=== PATIENT | male | born 1985 | race American Indian/Alaskan Native ===

== ENCOUNTER 2021-07-05 11:31 | Emergency (ER) | payer SELFPAY ==
[2021-07-05 11:40] VITALS: BP 129/75
[2021-07-05] MEDS ORDERED: SODIUM CHLORIDE 0.9% 1000 ML 1,000 ML IV ONE ×2 (12:30→15:24)
--- NOTE | 2021-07-05 12:30 | Emergency Department Report ---
ED General Adult HPI - General Chief complaint: Arrhythmia/Palpitations Stated complaint: STOMACH PAIN/CHEST MURMUR/FINGER NUMBNESS PUI?: No Time Seen by Provider: 07/05/21 12:25 Source: patient Mode of arrival: Ambulatory Limitations: No Limitations - History of Present Illness Initial comments: Mr. Alfred is a 36-year-old male comes to the emergency room complaining of palpitations last night along with abdominal pain. He appears to be in good health. He appears fit for his age. He denies any medical problems. He denies chest pain or shortness of breath. He denies fever or chills. 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 Is ambulatory nontoxic and [id number] on arrival to fast track -: Sudden, hour(s) Severity scale (0 -10): 0 Consistency: intermittent Improves with: none Worsens with: none Associated Symptoms: denies other symptoms. denies: confusion, chest pain, cough, diaphoresis, fever/chills, headaches, loss of appetite, malaise, nausea/vomiting, rash, seizure, shortness of breath, syncope, weakness Treatments Prior to Arrival: none - Related Data Previous Rx's Medication Instructions Recorded Last Taken Type Omeprazole [PriLOSEC] 20 mg PO QDAY #30 capsule. 07/18/15 Unknown Rx Allergies Allergy/AdvReac Type Severity Reaction Status Date / Time No Known Allergies Allergy Unverified 07/18/15 15:07 ED Review of Systems ROS: Stated complaint: STOMACH PAIN/CHEST MURMUR/FINGER NUMBNESS Other details as noted in HPI Comment: All other systems reviewed and negative ED Past Medical Hx - Past Medical History Previous Medical History?: Yes Hx GERD: Yes Additional medical history: childhood asthma, history of elevated CK, history of heart murmur - Surgical History Past Surgical History?: No - Family History Family history: no significant - Social History Smoking Status: Current Every Day Smoker Substance Use Type: Alcohol - Medications Home Medications: Home Medications Medication Instructions Recorded Confirmed Last Taken Type Omeprazole [PriLOSEC] 20 mg PO QDAY #30 capsule. 07/18/15 Unknown Rx ED Physical Exam - General Limitations: No Limitations General appearance: alert, in no apparent distress - Head Head exam: Present: atraumatic, normocephalic - Eye Eye exam: Present: normal appearance - ENT ENT exam: Present: mucous membranes moist - Neck Neck exam: Present: normal inspection - Respiratory Respiratory exam: Present: normal lung sounds bilaterally. Absent: respiratory distress - Cardiovascular Cardiovascular Exam: Present: regular rate, normal rhythm. Absent: systolic murmur, diastolic murmur, rubs, gallop - GI/Abdominal GI/Abdominal exam: Present: soft, normal bowel sounds - Rectal Rectal exam: Present: deferred - Extremities Exam Extremities exam: Present: normal inspection - Back Exam Back exam: Present: normal inspection - Neurological Exam Neurological exam: Present: alert, oriented X3 - Psychiatric Psychiatric exam: Present: normal affect, normal mood - Skin Skin exam: Present: warm, dry, intact, normal color. Absent: rash ED Course Vital Signs 07/05/21 11:37 Temperature 98.7 F Pulse Rate 80 Respiratory 18 Rate Blood Pressure 129/75 [Right] O2 Sat by Pulse 97 Oximetry ED Medical Decision Making - Lab Data Result diagrams: 07/05/21 12:41 07/05/21 12:41 - EKG Data -: EKG Interpreted by Ak EKG shows normal: sinus rhythm Rate: normal - EKG Data When compared to previous EKG there are: no significant change Interpretation: no acute changes - Medical Decision Making Vital Signs 07/05/21 11:37 Temperature 98.7 F Pulse Rate 80 Respiratory 18 Rate Blood Pressure 129/75 [Right] O2 Sat by Pulse 97 Oximetry Labs 07/05/21 07/05/21 07/05/21 12:41 12:41 12:41 WBC 5.9 RBC 5.17 H Hgb 15.0 Hct 44.9 MCV 87 MCH 29 MCHC 34 RDW 14.6 Plt Count 200 Lymph % (Auto) 27.4 Jackson % (Auto) 7.6 H Eos % (Auto) 4.6 H Baso % (Auto) 0.6 Lymph # (Auto) 1.6 Jackson # (Auto) 0.4 Eos # (Auto) 0.3 Baso # (Auto) 0.0 Seg Neutrophils % 59.8 Seg Neutrophils # 3.5 VBG pH Sodium 138 Potassium 4.2 Chloride 99.6 Carbon Dioxide 22 Anion Gap 21 BUN 6 L Creatinine 0.9 Estimated GFR > 60 BUN/Creatinine Ratio 7 Glucose 83 Ketones Quantitative Negative Calcium 9.1 Magnesium 1.90 Total Bilirubin 1.20 AST 35 ALT 24 Alkaline Phosphatase 52 Total Creatine Kinase 678 H CK-MB (CK-2) 10.3 H CK-MB (CK-2) Rel Index 1.5 Troponin T < 0.010 Total Protein 7.0 Albumin 4.4 Albumin/Globulin Ratio 1.7 Lipase 18 TSH 0.675 Urine Color Urine Turbidity Urine pH Ur Specific [place] Urine Protein Urine Glucose (UA) Urine Ketones Urine Blood Urine Nitrite Urine Bilirubin Urine Urobilinogen Ur Leukocyte Esterase Urine WBC (Auto) Urine RBC (Auto) 07/05/21 07/05/21 12:41 Unknown WBC RBC Hgb Hct MCV MCH MCHC RDW Plt Count Lymph % (Auto) Jackson % (Auto) Eos % (Auto) Baso % (Auto) Lymph # (Auto) Jackson # (Auto) Eos # (Auto) Baso # (Auto) Seg Neutrophils % Seg Neutrophils # VBG pH 7.362 Sodium Potassium Chloride Carbon Dioxide Anion Gap BUN Creatinine Estimated GFR BUN/Creatinine Ratio Glucose Ketones Quantitative Calcium Magnesium Total Bilirubin AST ALT Alkaline Phosphatase Total Creatine Kinase CK-MB (CK-2) CK-MB (CK-2) Rel Index Troponin T Total Protein Albumin Albumin/Globulin Ratio Lipase TSH Urine Color Straw Urine Turbidity Clear Urine pH 6.0 Ur Specific [place] 1.003 Urine Protein <15 mg/dl Urine Glucose (UA) Neg Urine Ketones Tr Urine Blood Neg Urine Nitrite Neg Urine Bilirubin Neg Urine Urobilinogen < 2.0 Ur Leukocyte Esterase Neg Urine WBC (Auto) < 1.0 Urine RBC (Auto) < 1.0 Labs noted UA noted CK noted, this is a chronic elevation. Patient works outside and does not hydrate well. He has minimal protein in his urine. Creatinine is normal. Patient's blood sugar 85 on serum. He was rechecked and on Accu-Chek it was 85 as well. He is taking p.o. without difficulty. Currently drinking juice. I have discussed with patient his elevated CK and the implications it has for r enal dysfunction. I have encouraged him to stay well-hydrated. Have given him 2 L of normal saline in the ER. The nurses had to restate his pain because the first INT was burning. Patient being discharged home with discharge plan of care including diet, activity, medications and follow-up. He verbalizes understanding of discharge plan of care - Differential Diagnosis GERD versus ACS versus URI Critical care attestation.: If time is entered above; I have spent that time in minutes in the direct care of this critically ill patient, excluding procedure time. ED Disposition Clinical Impression: Elevated CK, Hx of gastroesophageal reflux (GERD) Disposition: 01 HOME / SELF CARE / HOMELESS Is pt being admited?: No Does the pt Need Aspirin: No Condition: Stable Instructions: Creatine Kinase Test Additional Instructions: As we discussed drink a lot of water when you are working outside. You do not want your kidneys to become involved. You have been in the ER on a couple occasions with elevated CKs. This occurring over time can cause kidney dysfunction. Tylenol for pain Continue your home GERD medicine. At one time you were given a prescription for Protonix. If you do not have this you can use [id number] Pepcid. Follow-up with PCP in 48 hours for recheck. I have given you referral below Referrals: PRIMARY CARE, [Primary Care Provider] - 3-5 Days AMAURY GARCIA MD [Staff Physician] - 3-5 Days Time of Disposition: 15:29
[2021-07-05 13:38] LABS: Bilirubin,Urine NEG (Negative); Blood,Urine NEG (Negative); Color,Urine Straw (Yellow); Protein,Urine <15 mg/dL mg/dL (Negative); RBC,Urine < 1.0 /HPF (0.0-6.0); Urobilinogen,Urine < 2.0 mg/dL (<2.0); WBC,Urine < 1.0 /HPF (0.0-6.0)
[2021-07-05 13:58] LABS: Basophils % (Auto) 0.6 % (0.0-1.8); Eosinophils # (Auto) 0.3 K/mm3 (0.0-0.4); Eosinophils % (Auto) 4.6 % (0.0-4.3); Hematocrit 44.9 % (35.5-45.6); Lymphocytes # (Auto) 1.6 K/mm3 (1.2-5.4); Lymphocytes % (Auto) 27.4 % (13.4-35.0); Mean Corpuscular HGB Conc 34 % (32-34); Mean Corpuscular Volume 87 fl (84-94); Monocytes # (Auto) 0.4 K/mm3 (0.0-0.8); Monocytes % (Auto) 7.6 % (0.0-7.3); Platelet Count 200 K/mm3 (140-440); Red Blood Count 5.17 M/mm3 (3.65-5.03); Red Cell Distribution Width 14.6 % (13.2-15.2)
[2021-07-05 14:15] LABS: Alanine Aminotransferase 24 units/L (7-56); Albumin 4.4 g/dL (3.9-5); BUN/Creatinine Ratio 7; Blood Urea Nitrogen 6 mg/dL (9-20); Calcium 9.1 mg/dL (8.4-10.2); Creatine Kinase MB 10.3 ng/mL (0.0-4.0); Hemolysis Index 76
[2021-07-05] MEDS ORDERED: PANTOPRAZOLE 40 MG TAB PO ONE (15:26)
--- NOTE | 2021-07-06 10:23 | Electrocardiograph Report ---
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
== END 2021-07-05 17:12 | disposition home or self-care (01) ==
LOC: ED 11:31
DX: R00.2 Palpitations (principal); K21.9 Gastro-esophageal reflux disease without esophagitis; R10.9 Unspecified abdominal pain; R74.8 Abnormal levels of other serum enzymes; F17.200 Nicotine dependence, unspecified, uncomplicated; Z72.89 Other problems related to lifestyle
CPT/HCPCS: 36415; 80053; 81001; 82010; 82550; 82553; 82805; 82962; 83690; 83735; 84443; 84484; 85025; 93005; 96360; 96361; 99283; J7030